=== PATIENT | female | born 1990 | race Two or more races ===

== ENCOUNTER 2024-01-28 01:44 | Emergency (ER) | payer OTHER, SELFPAY ==
[2024-01-28 01:51] VITALS: BP 118/84; PULSE 98; RESP 18; TEMP 36.9; O2SAT 98; BMI 25.9
--- NOTE | 2024-01-28 03:10 | ED_ITS ---
HPI - Allergic Reaction General Chief complaint: Allergic Reaction Stated complaint: allergies Time Seen by Provider: 01/28/24 03:03 Source: patient Mode of arrival: ambulatory Limitations: no limitations History of Present Illness ED Provider: Dr. Angie White HPI narrative: Patient comes to the emergency room complaining of throat itchiness since 19:30. Patient reports leg swelling, all over hives and itchiness. Also complaining of a splinter in her left heel. Related Data Allergies Allergy/AdvReac Type Severity Reaction Status Date / Time shrimp Allergy Anaphylaxis Verified 01/28/24 01:52 Review of Systems Review of Systems: Constitutional : No Weight loss, No Fever, No Chills, No Night Sweats, No Fatigue, No Malaise ENT/Mouth : No Hearing loss, No Ear Pain, No Nasal Congestion, No Sinus Pain, No Hoarseness, No sore throat, No Rhinorrhea, No Swallowing Difficulty Eyes: No Eye Pain, No Swelling, No Redness, No Foreign Body, No Discharge, No Vision Changes Cardiovascular : No Chest Pain, No SOB, No Dyspnea on Exertion, No Orthopnea, No Edema, No Palpitations Respiratory : No Cough, No Sputum, No Wheezing, No Smoke Exposure, No Dyspnea Gastrointestinal : No Nausea, No Vomiting, No Diarrhea, No Constipation, No abdo cordelia Pain, No Hematochezia, No Melena Genitourinary : no irregular bleeding, No Dysuria, No Urinary Frequency, No Hematuria, No Urinary Incontinence, No Urgency, No Flank Pain, No Urinary Flow Changes, No Hesitancy Musculoskeletal : No joint pain, No Myalgias, No Joint Swelling Skin : Complaining of itchiness, splinter in the heel Neuro : No Weakness, No Numbness, No Paresthesias, No Loss of Consciousness, No Dizziness, No Headache Psych : No Anxiety/Panic, No Depression, No SI/HI/AH/VH, No Social Issues, Heme/Lymph: No Bruising, No Bleeding,No Lymphadenopathy Endocrine : No Polyuria, No Polydipsia, No Temperature Intolerance PMFSH Social History Social History Smoked in Last 30 Days: Yes Use of substances other than those prescribed or required for medical reasons: No Advance Directives: No Advance Directives Information Provided: Yes Patient : No Physical Exam ED Vital Signs: Vital Signs - 24 hr 01/28/24 01:51 Temperature 98.4 F Pulse Rate 98 Respiratory Rate 18 Blood Pressure 118/84 Pulse Oximetry 98 Oxygen Delivery Method Room Air BMI result Body Mass Index 25.9 Const Other: Appearance: Alert. Oriented X3. No acute distress. Eyes: Pupils equal, round and reactive to light. ENT: Pharynx normal. Neck: Normal inspection. Neck supple. No lymph nodes noted. No crepitus CVS: Normal heart rate and rhythm. Pulses normal. Normal S1 and S2 Respiratory: No respiratory distress. Breath sounds normal. No Wheezing. No rales Abdomen: Soft and nontender. No rigidity. No distention. Skin: Patient has no erythema, no hives, patient is not itching anywhere. There is a small splinter in the left heel Extremities: No lower extremity edema. No Lacerations. No Rash Neuro: Oriented X 3. No motor deficit. No sensory deficit. Moving all extremities. No slurred speech. CN 2 through 12 grossly intact Psych: calm, cooperative, normal affect Medical Decision Making Medical Decision Making MDM Narrative: -patient's vitals are completely normal, there is no signs of angioedema, normal voice, no hives, no swelling. Physical exam is normal -patient did have a splinter in her left heel, was removed with an 18 gauge needle. -patient was given p.o. prednisone, Pepcid and Benadryl. Differential Diagnosis Differential Diagnoses: The differential diagnosis associated with the presentation includes (Mild allergic reaction, splinter) Admission/Observation Consideration of admission/observation: Escalation of care including admission/observation considered (Given patient's description of symptoms, observation was considered.) Critical Care Time Critical Care Time Critical Care Time: Yes Total Critical Care Time: 30 Attestation: I have personally provided critical care time. Time includes review of lab data, radiology results, discussion with consultants, and monitoring for potential decompensation. Intervention performed as documented. Discharge Plan Discharge Clinical Impression: Allergic reaction, Splinter of foot Patient Disposition: Home, Self-Care Instructions: General Allergic Reaction (ED) Additional Instructions: Please follow-up with your primary care physician tomorrow. If you have any worsening or new symptoms, please return to the emergency room or call 911 Print Language: Albanian
[2024-01-28 03:20] VITALS: BP 116/68; PULSE 87; RESP 17; TEMP 36.7; O2SAT 98
[2024-01-28] MEDS: diphenhydrAMINE HCL 25 MG CAPSULE 50 MG PO (03:27)
[2024-01-28] MEDS: Famotidine 20 MG TABLET PO (03:27)
[2024-01-28] MEDS: predniSONE 20 MG TABLET 60 MG PO (03:27)
[2024-01-28 03:37] VITALS: BP 116/68; PULSE 87; RESP 17; TEMP 36.7; O2SAT 98
== END 2024-01-28 03:38 | disposition home or self-care (01) ==
PROVIDERS: Emergency Provider Emergency Medicine
DX: S90.852A Superficial foreign body, left foot, initial encounter (principal); L50.9 Urticaria, unspecified; X58.XXXA Exposure to other specified factors, initial encounter; W45.8XXA Other foreign body or object entering through skin, initial encounter; Y93.89 Activity, other specified; Y92.89 Other specified places as the place of occurrence of the external cause; Y99.8 Other external cause status
CPT/HCPCS: 99283; 99284